=== PATIENT | female | born 1960 | race Caucasian/White ===

== ENCOUNTER 2021-08-08 22:17 | Emergency (ER) | payer OTHER, MEDICARE, SELFPAY ==
[2021-08-08] VITALS (7 sets, daily range): BP systolic 142–212; BP diastolic 77–91; PULSE 71–87; RESP 16–26; TEMP 37.1; O2SAT 93–97; BMI 29.6
--- NOTE | 2021-08-08 22:29 | XR_ITS ---
PROCEDURE INFORMATION: Exam: XR Right Foot Exam date and time: 08/08/2021 10:29 PM Age: 61 years old Clinical indication: Injury or trauma; Fall; Fracture, traumatic; Displaced; Ankle; Right; Not specified; Additional info: Fall, R ankle injury TECHNIQUE: Imaging protocol: XR Right foot. Views: 1 or 2 views. COMPARISON: No relevant prior studies available. FINDINGS: Bones/joints: There is an oblique fracture through the distal right fibula that enters the ankle mortise. There is about 2 cm of lateral dislocation of the talus with respect to the tibia. There is posterior dislocation of the tibia as well by about 2 cm. A posterior tibial fracture is seen. There is a medial malleolar fracture that is distracted by about 14 mm. Soft tissues: Moderate soft tissue swelling. IMPRESSION: Right ankle fracture dislocation as above
--- NOTE | 2021-08-08 22:29 | XR_ITS ---
PROCEDURE INFORMATION: Exam: XR Pelvis Exam date and time: 08/08/2021 10:29 PM Age: 61 years old Clinical indication: Pelvic pain; Additional info: Fall, R ankle injury TECHNIQUE: Imaging protocol: XR pelvis. Views: 1 or 2 view. COMPARISON: No relevant prior studies available. FINDINGS: Bones/joints: Unremarkable. No acute fracture. Soft tissues: Unremarkable. IMPRESSION: No acute findings.
--- NOTE | 2021-08-08 22:29 | XR_ITS ---
PROCEDURE INFORMATION: Exam: XR Right Tibia and Fibula Exam date and time: 08/08/2021 10:29 PM Age: 61 years old Clinical indication: Injury or trauma; Fall; Fracture, traumatic; Displaced; Ankle; Right; Not specified; Additional info: Fall, R ankle injury TECHNIQUE: Imaging protocol: XR Right tibia and fibula. Views: 2 views. COMPARISON: No relevant prior studies available. FINDINGS: Bones/joints: There is an oblique fracture through the distal right fibula that enters the ankle mortise. There is about 2 cm of lateral dislocation of the talus with respect to the tibia. There is posterior dislocation of the tibia as well by about 2 cm. A posterior tibial fracture is seen. There is a medial malleolar fracture that is distracted by about 14 mm. Soft tissues: Moderate soft tissue swelling. IMPRESSION: Right ankle fracture dislocation as above
--- NOTE | 2021-08-08 22:29 | XR_ITS ---
PROCEDURE INFORMATION: Exam: XR Right Ankle Exam date and time: 08/08/2021 10:29 PM Age: 61 years old Clinical indication: Injury or trauma; Fall; Fracture, traumatic; Displaced; Ankle; Right; Not specified; Additional info: Fall, R ankle injury TECHNIQUE: Imaging protocol: XR Right ankle. Views: 1 or 2 views. COMPARISON: No relevant prior studies available. FINDINGS: Bones/joints: There is an oblique fracture through the distal right fibula that enters the ankle mortise. There is about 2 cm of lateral dislocation of the talus with respect to the tibia. There is posterior dislocation of the tibia as well by about 2 cm. A posterior tibial fracture is seen. There is a medial malleolar fracture that is distracted by about 14 mm. Soft tissues: Moderate soft tissue swelling. IMPRESSION: Right ankle fracture dislocation as above
--- NOTE | 2021-08-08 22:29 | XR_ITS ---
PROCEDURE INFORMATION: Exam: XR Chest Exam date and time: 08/08/2021 10:29 PM Age: 61 years old Clinical indication: Pre-operative exam; Cardiovascular screening and respiratory screening exam; Prior surgery; Additional info: Fall, R ankle injury TECHNIQUE: Imaging protocol: XR of the chest. Views: 4 or more views. COMPARISON: No relevant prior studies available. FINDINGS: Lungs: Postsurgical changes seen in the lung. Some volume loss noted. Tenting in the diaphragms. No focal consolidation. Pleural spaces: Unremarkable. No pleural effusion. No pneumothorax. Heart/Mediastinum: Unremarkable. No cardiomegaly. Bones/joints: Unremarkable. IMPRESSION: No acute cardiopulmonary disease
[2021-08-08 22:45] LABS: Basophils # 0.1 K/mm3 (0-0.2); Basophils % 0.7 % (0.1-2.0); Hematocrit 43.9 % (37.0-47.0); Hemoglobin 14.1 g/dL (12.2-16.2); Lymphocytes # 2.9 K/mm3 (0.7-4.5); Lymphocytes % 19.9 % (10-50); Mean Corpuscular HGB Conc 32.2 g/dL (31.8-35.4); Mean Corpuscular Hemoglobin 29.2 pg (27.0-31.2); Mean Corpuscular Volume 90.7 fl (81-99); Monocytes % 6.8 % (1.7-9.3); Neutrophils # 10.5 K/mm3 (1.8-7.8); Neutrophils % 72.6 % (37.0-80.0); Platelet Count 511 K/mm3 (142-424); Red Blood Count 4.84 M/mm3 (4.20-5.40); Red Cell Distribution Width 18.2 % (11.5-17.5); White Blood Count 14.5 K/mm3 (4.8-10.8)
[2021-08-08 22:50] LABS: Alanine Aminotransferase 18 U/L (12-78); Albumin Level 4.1 g/dl (3.5-5.0); Albumin/Globulin Ratio 1.4 (1.1-1.8); Alkaline Phosphatase 90 U/L (38-126); Anion Gap 7.8 mEq/L (5-15); Aspartate Amino Transferase 23 U/L (14-36); Bilirubin,Total 0.2 mg/dl (0.2-1.3); Blood Urea Nitrogen 15 mg/dl (7-17); Calcium 9.9 mg/dl (8.4-10.2); Carbon Dioxide 34 mmol/L (22.0-30.0); Chloride 102 mmol/L (98-107); Creatinine Clearance Estimated 153 mL/min (50-200); Estimated Glomerular Filt Rate 126 ml/min (>60); GFR (African American) 152 ML/MIN (>60); Globulin 2.9 g/dL (1.3-3.2); Glucose 170 mg/dl (74-100); Potassium 3.8 mmoL/L (3.5-5.1); Sodium 140 mmol/L (136-145)
[2021-08-08 22:55] LABS: C-Reactive Protein 4.4 mg/L (0-4)
--- NOTE | 2021-08-08 23:01 | [facility].EDLOEX ---
ED Disposition Clinical Impression: Fracture of ankle, trimalleolar, right, closed Qualifiers: Encounter type: initial encounter Qualified Code(s): S82.851A - Displaced trimalleolar fracture of right lower leg, initial encounter for closed fracture Disposition: Xfer Short-Term Hosp Condition on Discharge: Serious Referrals: Patsy Manuel [Primary Care Provider] - - Critical Care Critical Care Time: No Attestation: On 08/08/21, the high probability of a clinically significant, sudden or life threatening deterioration of the following system(s) required my full and direct attention, intervention and personal management. The time I documented below is in addition to time spent performing reported procedures but includes the following listed in this critical care notation. Medical Decision Making - Medical Records Medical records reviewed: Yes: I reviewed the patient's medical records. - Erasto Inquiry Pt receiving controlled substance: No Vital Signs: 08/08/21 22:16 08/08/21 22:31 Temperature 98.7 F Temperature Source Oral Pulse Rate 71 Pulse Rate [Right] 77 Respiratory Rate 21 Blood Pressure 178/85 H Blood Pressure [Right Arm] 184/81 H Blood Pressure Mean [Right Arm] 115 Blood Pressure Source [Right Arm] Automatic Cuff 02 Sat by Pulse Oximetry 97 97 Oxygen Delivery Method Nasal Cannula Oxygen Flow Rate (LPM) 2 - Lab Data Lab results reviewed: Yes: I reviewed the patient's lab results. Lab Results 08/08/21 22:19: WBC 14.5 H, RBC 4.84, Hgb 14.1, Hct 43.9, MCV 90.7, MCH 29.2, MCHC 32.2, RDW 18.2 H, Plt Count 511 H, MPV 9.0, Neut % (Auto) 72.6, Lymph % (Auto) 19.9, Amador % (Auto) 6.8, Eos % (Auto) 0.0 L, Baso % (Auto) 0.7, Neut # (Auto) 10.5 H, Lymph # (Auto) 2.9, Amador # (Auto) 1.0, Eos # (Auto) 0.0, Baso # (Auto) 0.1, ESR 18 08/08/21 22:19: Sodium 140, Potassium 3.8, Chloride 102, Carbon Dioxide 34 H, Anion Gap 7.8, BUN 15, Creatinine 0.50 L, Estimated Creat Clear 153, Estimated GFR 126, Est GFR ( Amer) 152, Glucose 170 H, Calcium 9.9, Total Bilirubin 0.2, AST 23, ALT 18, Alkaline Phosphatase 90, C-Reactive Protein 4.4 H, Total Protein 7.0, Albumin 4.1, Globulin 2.9, Albumin/Globulin Ratio 1.4, Procalcitonin 0.031 Result diagrams: 08/08/21 22:19 08/08/21 22:19 Orders (Tests/Meds): ED MEDICATIONS Generic Name Dose Route Start Last Admin Trade Name Freq PRN Reason Stop Dose Admin Sodium Chloride 1,000 mls @ 999 mls/hr 08/08/21 22:45 08/08/21 22:59 Sod Chlor 0.9% 1000ml Bag IV 08/08/21 23:45 999 mls/hr .Q1H1M ALEXANDRA Administration Discontinued Medications Generic Name Dose Route Start Last Admin Trade Name Freq PRN Reason Stop Dose Admin Fentanyl Citrate 25 mcg 08/08/21 23:40 08/08/21 23:45 Fentanyl 250mcg/5ml Vial IV 08/08/21 23:41 25 mcg ONCE ONE Administration Fentanyl Citrate 25 mcg 08/08/21 23:59 08/08/21 23:48 Fentanyl 250mcg/5ml Vial IV 08/09/21 00:00 25 mcg ONCE ONE Administration Midazolam HCl 4 mg 08/08/21 23:40 08/08/21 23:45 Midazolam 5mg/Ml 1ml Vial IV 08/08/21 23:41 4 mg ONCE ONE Administration Morphine Sulfate 4 mg 08/08/21 22:58 08/08/21 22:59 Morphine 4mg/Ml Syringe IV 08/08/21 22:59 4 mg ONCE ONE Administration Ondansetron HCl 4 mg 08/08/21 22:58 08/08/21 22:59 Ondansetron 4mg/2ml Vial IV 08/08/21 22:59 4 mg ONCE ONE Administration ORDERS Category Date Time Status Ankle XR - Right 2 Views [XR ankle RT 2V] Stat Exams 08/08/21 23:57 Taken UA [Urinalysis and Microscopic] Stat Lab 08/08/21 22:35 Ordered - Radiology Data #1 Image(s): Chest, Pelvis, Tib/Fib, Ankle, Foot/Toes Image Reviewed: Yes I have reviewed radiologist's interpretation Preliminary Findings: Abnormal (tri-mal fx wirh dislocation) - Physician Consults Physician Consulted: hank Reason -: Transfer to another facilty - Reevaluation(s) Time: 01:13 Reevaluation #1: stable Medical Decision Narrative:
[2021-08-08 23:09] LABS: Procalcitonin 0.031 ng/mL (0.0-2.0)
--- NOTE | 2021-08-08 23:10 | PC.NURSE ---
pt to radiology via stretcher
--- NOTE | 2021-08-08 23:22 | PC.NURSE ---
Pt's mother called for update, verified name and pt gave permission to update mother.
[2021-08-08 23:29] LABS: Erythrocyte Sedimentation Rate 18 mm/hr (0-30)
--- NOTE | 2021-08-08 23:57 | XR_ITS ---
PROCEDURE INFORMATION: Exam: XR Right Ankle Exam date and time: 08/08/2021 11:57 PM Age: 61 years old Clinical indication: Pain; Ankle; Right; Additional info: Post-reduction TECHNIQUE: Imaging protocol: XR Right ankle. Views: 1 or 2 views. COMPARISON: CR XR ANKLE RT 2V 08/08/2021 11:03 PM FINDINGS: Bones/joints: Trimalleolar fracture again seen. Improved alignment status post reduction. Other findings: Cast material present. IMPRESSION: Improved alignment status post reduction.
[2021-08-09] VITALS (7 sets, daily range): BP systolic 124–168; BP diastolic 68–86; PULSE 70–77; RESP 17–19; TEMP 37; O2SAT 93–96
--- NOTE | 2021-08-09 00:10 | PC.NURSE ---
Pt prepared for conscious sedation, at [facility]. Pt tolerated reduction and splint placement well. She was able to return to baseline at this time. Pt is in 1/10 pain and resting quietly in bed.
--- NOTE | 2021-08-09 00:23 | PC.NURSE ---
Given pt's mother update.
--- NOTE | 2021-08-09 00:42 | PC.NURSE ---
on phone with [facility] @ this time
--- NOTE | 2021-08-09 00:46 | PC.NURSE ---
Dr. Austin s/w Dr. Pa with [facility]
--- NOTE | 2021-08-09 01:05 | PC.NURSE ---
Olga Lidia called for pt transfer to ER
== END 2021-08-09 01:40 | disposition short-term general hospital (02) ==
PROVIDERS: Emergency Provider Emergency Medicine; PCP Family Medicine
DX: S82.851A Displaced trimalleolar fracture of right lower leg, initial encounter for closed fracture (principal); W10.9XXA Fall (on) (from) unspecified stairs and steps, initial encounter; Y92.89 Other specified places as the place of occurrence of the external cause
CPT/HCPCS: 27818; 29515; 71045; 72170; 73590; 73600; 73620; 80053; 84145; 85025; 85651; 86140; 96365; 96375; 99285; J2405